=== PATIENT | female | born 2000 | race Two or more races ===

== ENCOUNTER → 2024-08-17 | Outpatient (CLI) | payer BC, SELFPAY ==
[2024-08-17 17:13] LABS: Alanine Aminotransferase 15 U/L (10-49); Albumin, Serum 4.8 gm/dL (3.5-5.0); Alkaline Phosphatase 80 U/L (46-116); Aspartate Amino Transferase 13 U/L (0-34); Bilirubin,Direct 0.1 mg/dL (0.0-0.3); Bilirubin,Total 0.4 mg/dL (0.3-1.2); Potassium 3.9 mMol/L (3.4-5.1); Total Protein 7.4 gm/dL (5.7-8.2)
== END | disposition home or self-care (01) ==
LOC: COPL 16:25
PROVIDERS: PCP Nurse Practitioner Family; Referring Provider Dermatology; Visit Provider Podiatrist
DX: L70.0 Acne vulgaris (principal); B35.1 Tinea unguium
CPT/HCPCS: 36415; 80076; 84132

== ENCOUNTER → 2024-10-06 | Outpatient (CLI) | payer BC, SELFPAY ==
[2024-10-06 19:07] LABS: Alanine Aminotransferase 43 U/L (10-49); Albumin, Serum 4.7 gm/dL (3.5-5.0); Alkaline Phosphatase 112 U/L (46-116); Aspartate Amino Transferase 29 U/L (0-34); Bilirubin,Direct < 0.1 mg/dL (0.0-0.3); Bilirubin,Total 0.3 mg/dL (0.3-1.2); Total Protein 7.2 gm/dL (5.7-8.2)
== END | disposition home or self-care (01) ==
LOC: COPL 16:27
PROVIDERS: PCP Nurse Practitioner Family; Referring Provider Podiatrist; Visit Provider Podiatrist
DX: B35.1 Tinea unguium (principal)
CPT/HCPCS: 36415; 80076

== ENCOUNTER → 2025-03-09 | Outpatient (CLI) | payer BC, SELFPAY ==
[2025-03-09 17:53] LABS: Alanine Aminotransferase 11 U/L (10-49); Albumin, Serum 4.9 gm/dL (3.5-5.0); Alkaline Phosphatase 74 U/L (46-116); Aspartate Amino Transferase < 8 U/L (0-34); Bilirubin,Direct 0.1 mg/dL (0.0-0.3); Bilirubin,Total 0.3 mg/dL (0.3-1.2); Total Protein 7.3 gm/dL (5.7-8.2)
== END | disposition home or self-care (01) ==
LOC: COPL 16:23
PROVIDERS: PCP Nurse Practitioner Family; Referring Provider Podiatrist; Visit Provider Podiatrist
DX: B35.1 Tinea unguium (principal)
CPT/HCPCS: 36415; 80076

== ENCOUNTER → 2025-05-13 | Outpatient (CLI) | payer BC, SELFPAY ==
--- NOTE | 2025-05-13 15:00 | XR_ITS ---
Examination: Breast ultrasound complete, bilateral Date and time of exam: May 13, 2025, 1459 hours INDICATIONS: Right breast sonogram November 22, 2022 12:00 nodule 7 mm 10:00 nodule 22 mm 10:00 nodule 49 mm Technique: Real-time grayscale ultrasonographic imaging bilateral breasts, including all 4 quadrants as well as nipple retroareolar and axillary regions. 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
--- NOTE | 2025-05-13 16:00 | XR_ITS ---
Examination: Pelvic ultrasound, transabdominal, complete Technique: Transabdominal ultrasound of the pelvis performed using grayscale imaging Date and time of exam: May 13, 2025, 1510 hours INDICATIONS: History bilateral ovarian cystic disease FINDINGS: Uterus 7.8 cm endometrial stripe 1.0 cm No uterine mass Right ovary 2.4 cm arterial flow small follicles, the largest 8 mm Left ovary 3.3 cm arterial flow small follicles, the largest 5 mm IMPRESSION: Negative study
== END | disposition home or self-care (01) ==
PROVIDERS: PCP Nurse Practitioner Family; Referring Provider Nurse Practitioner Family; Visit Provider Nurse Practitioner Family
DX: R92.8 Other abnormal and inconclusive findings on diagnostic imaging of breast (principal)
CPT/HCPCS: 76641; 76856

== ENCOUNTER 2025-05-19 15:21 | Outpatient (AMB) | payer BC, SELFPAY ==
[2025-05-19 15:37] VITALS: BP 91/60; PULSE 66; RESP 14; TEMP 37.1; O2SAT 98; BMI 22.5
--- NOTE | 2025-05-19 15:37 | GYNCLNT_ITS ---
Vital Signs 05/19/25 15:37 Height 1.5 m Height Method Stated Weight 50.576 kg Weight Measurement Method Standing Scale BMI 22.5 BP 91/60 Blood Pressure Source Automatic Cuff Blood Pressure Location Left Upper Arm Position Sitting Respiration 14 Pulse 66 Pulse Source Monitor Temp 98.7 F Temp Source Oral Pulse Oximetry (%) 98 Oxygen Delivery Method Room Air Allergies/Home Meds Allergies & Medications Allergies NKA Allergy (Unknown, Uncoded 05/19/25 15:38) No Known Allergies Allergy (Uncoded 05/19/25 15:38) Medication Reconciliation terbinafine HCl 250 mg tablet 250 mg PO QDAY 05/19/25 [History Confirmed 05/19/25] Intake Visit Data Collection New Patient or Established: Established Patient (seen at [facility] within 3 years) Reason for Visit:: UNSPECIFIED CYST Seen by Clinical Staff ONLY (RN/MA): No 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 Do You Feel Safe at Home: Yes Authorities Contacted: N/A PCP or OBGYN visit in last 3 months: Yes Hx Now: No Are you currently on any form of Control: Yes Last menstrual period: 05/09/25 Pain Present Currently: No Pain Scale Used: Juárez-Goodman/Numerical Pain scale:: 0 Smoking Status Smoking Status: Never smoker Immunizations Flu Vaccine in the Last 12 Months: No Flu Vaccine Exclusion Criteria: No Exclusion Criteria Teletype Adjuster history Teletype Adjuster History Menstrual regularity: regular Flow: normal Monthly: Yes How many days does period last: 5 Age at menarche: 14 Currently sexually active: Yes Questionnaires Covid-19 Vaccine Questionnaire Has patient been vacinated for Covid-19 Have you been vacinated for Covid-19: Yes PHQ-9 PHQ-2 Over the last 2 weeks, how often have you been bothered by any of the following problems? 1. Little interest or pleasure in doing things: not at all 2. Feeling down, depressed, or hopeless: not at all Total score: 0 PHQ-9 3. Trouble falling or staying asleep, or sleeping too much: Not at all 4. Feeling tired or having little energy: Not at all 5. Poor appetite or overeating: Not at all 6. Feeling bad about yourself - or that you are a failure or have let yourself or your family down: Not at all 7. Trouble concentrating on things, such as reading the newspaper or watching television: Not at all 8. Moving or speaking so slowly that other people could have noticed? - Or the opposite - being so fidgety or restless that you have been moving around a lot more than usual: not at all 9. Thoughts that you would be better off or of hurting yourself in some way: Not at all Total score: 0 Source: Developed by Drs. Hany Ramsey, Betty Sung, Omar Weldon and colleagues, with an educational kip from [employer]. Depression screen completed yes Social History Tobacco History Smoking Status: Never smoker Domestic Abuse History Do You Feel Safe at Home: Yes History of Present Illness HPI Narrative Chief Complaint Ovarian cysts Kayla Alcantar is a 24-year-old female presenting on referral from [facility] for evaluation of ovarian cysts. She reports regular menstrual periods with variation of only one or two days. 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 She has never been previously evaluated for PCOS. The patient is currently taking control pills regularly, which she has been using for 5 months. Her acne is under control with tretinoin cream, though she notes breakouts mainly occur during her periods. She reports no severe cystic acne since starting control. Medical History: - History of breast cysts (fibroadenosis) related to hormonal changes - Hormonal acne Medications: - control pills taken regularly for 5 months - Tretinoin cream for acne Review of Systems Review of Systems Systems Reviewed: All systems reviewed, normal except as documented Exam General General Appearance: alert, in no apparent distress and healthy appearing Head Head exam: atraumatic Neck Neck exam: Present normal inspection and trachea midline Chest Chest inspection: Present normal inspection and symmetric chest wall rise External exam: Present normal external exam; Absent tenderness Neuro Neurological exam: Present oriented X3 Psych Psychiatric exam: Present normal affect and normal mood Office Procedures [facility] Clinic LOC & Office Proc's Nursing/Assessment Patient Status: Established Patient OB Clinic Nursing Assessment: Medication Reconciliation, Update PMH in EMR and Vital Signs OB Clinic Coordination of Care: Complex Care and Chronic Disease 1-5, Consent,records obtained, informed consent, Education Simp Pt/Fam, 1 Ins Authorization, Lab and Imaging orders, Results/Orders obtained and Staff clarify orders Established Patient Charge Established Patient Point Assignment: 120 Established Patient Point Charge: EP Level 4 ([id number]) Assessment & Plan Diagnosis / Problem List (1) Abnormal uterine and vaginal bleeding, unspecified: Status: Acute (2) PCOS (polycystic ovarian syndrome): Status: Acute Plan Ovarian cysts Assessment: Patient was referred for ovarian cysts, however pelvic ultrasound from 05-13-2025 demonstrates normal findings with uterus measuring 7.8 cm, endometrial stripe of 1 cm, right ovary 2.4 cm with arterial flow, left ovary 3.3 cm with arterial flow, and small follicles. No abnormal or pathological cysts were noted on imaging. Patient has regular menstrual periods with v ariation of only one to two days. She has a history of breast cysts (fibroadenosis) related to hormonal changes and hormonal acne. No previous evaluation for PCOS has been performed. Plan: - Perform lab panel to check for PCOS - Continue control pills - Monitor with yearly pelvic ultrasound - If a cyst grows, address accordingly - Test order will be provided - Results will be communicated by phone Hormonal acne Assessment: Patient has hormonal acne that is currently under control with tretinoin cream. She experiences breakouts mainly during menstrual periods. Has been on control pills for 5 months with no severe cystic acne noted. Plan: - Continue control pills
== END 2025-05-19 15:59 | disposition home or self-care (01) ==
LOC: HODSOBC 15:21
PROVIDERS: Supervising Provider Obstetrics & Gynecology; Visit Provider Obstetrics & Gynecology
DX: N93.9 Abnormal uterine and vaginal bleeding, unspecified (principal); Z79.3 Long term (current) use of hormonal contraceptives
CPT/HCPCS: 99214; G0463

== ENCOUNTER → 2025-05-27 | Outpatient (CLI) | payer BC, SELFPAY ==
--- NOTE | 2025-05-27 15:39 | XR_ITS ---
EXAMINATION: Abdomen 2 views TECHNIQUE: AP supine and AP upright abdomen 2 views Date and time: May 26 60514, 1624 hours INDICATIONS: Abdominal pain beginning 5 days ago. FINDINGS: Nonobstructive bowel gas pattern. No free air. Intact osseous structures IMPRESSION: Nonobstructive bowel gas pattern
[2025-05-27 17:30] LABS: Basophils # (Auto) 0.1 Thou/mm3 (0.0-0.2); Basophils % (Auto) 1 % (0-2.5); Eosinophils # (Auto) 0.0 Thou/mm3 (0.0-0.5); Eosinophils % (Auto) 1 % (0-10); Hematocrit 37.3 % (36.0-46.0); Hemoglobin 12.6 g/dL (12.0-16.0); Immature Granulocytes Auto 0.02 Thou/mm3 (0.00-0.00); Lymphocytes # (Auto) 2.8 Thou/mm3 (1.0-4.8); Lymphocytes % (Auto) 43 % (10-50); Mean Corpuscular HGB Conc 33.8 g/dl (31.0-37.0); Mean Corpuscular Hemoglobin 29.0 pg (25.0-35.0); Mean Corpuscular Volume 86 fL (80-100); Monocytes # (Auto) 0.6 Thou/mm3 (0.0-0.8); Monocytes % (Auto) 8 % (0-12); Neutrophils # (Auto) 3.1 Thou/mm3 (1.8-7.7); Neutrophils % (Auto) 47 % (37-80); Nucleated Red Blood Cell # 0.00 Thou/mm3 (0.00-0.00); Nucleated Red Blood Cell % 0 /100 WBC (0); Platelet Count 348 Thou/mm3 (140-440); RDW Standard Deviation 42.1 fL (36.4-46.3); Red Blood Count 4.35 Miln/mm3 (4.00-5.20); White Blood Count 6.6 Thou/mm3 (3.6-11.0)
== END | disposition home or self-care (01) ==
LOC: COPL 15:27
PROVIDERS: PCP Nurse Practitioner Family; Referring Provider Physician Assistant; Visit Provider Radiology Diagnostic Radiology
DX: K57.92 Diverticulitis of intestine, part unspecified, without perforation or abscess without bleeding (principal)
CPT/HCPCS: 36415; 74019; 85025

== ENCOUNTER → 2025-06-20 | Outpatient (CLI) | payer BC, SELFPAY ==
[2025-06-30 07:00] LABS: Albumin 4.5 g/dL (3.6-5.1); DHEA Sulfate* 265 mcg/dL (18-391); SHBG 36 nmol/L (17-124); Testosterone, Bioavailable 8.8 ng/dL (0.5-8.5); Testosterone, Free 4.3 pg/mL (0.2-5.0); Testosterone,Total 39 ng/dL (2-45)
== END | disposition home or self-care (01) ==
PROVIDERS: PCP Nurse Practitioner Family; Referring Provider Obstetrics & Gynecology; Visit Provider Obstetrics & Gynecology
DX: E28.2 Polycystic ovarian syndrome (principal)
CPT/HCPCS: 36415; 82040; 82627; 84270; 84403